=== PATIENT | female | born 1975 | race Caucasian/White ===

== ENCOUNTER 2019-12-04 13:24 | Emergency (ER) | payer MEDICAID ==
[~2019-12-04] VITALS: Ht 162.6 cm; Wt 73.0 kg
[2019-12-04] MEDS ORDERED: DIAMOX (13:29)
[2019-12-04] MEDS ORDERED: TYLENOL (13:31)
[2019-12-04] MEDS ORDERED: ZOFRAN (13:31)
[2019-12-04 14:47] LABS: PROTHROMBIN TIME 10.5 sec (9.6-11.0)
[2019-12-04 14:47] LABS: BASOPHILS % 0.6 % (0.0-2.0); EOSINOPHILS % 0.3 % (0.0-5.0); HEMATOCRIT. 41.6 % (36.0-48.0); HEMOGLOBIN. 13.8 g/dL (12.0-16.0); LYMPHOCYTES % 12.9 % (20.0-50.0); MEAN CORPUSCULAR HEMOGLOBIN 31.3 pg (28.0-32.0); MEAN CORPUSCULAR VOLUME 94.6 fL (81.0-99.0); MEAN PLATELET VOLUME 7.5 fl (7.4-10.4); MONOCYTES % 7.2 % (2.0-8.0); PLATELET 265 x1000/uL (130-400)
[2019-12-04 14:59] LABS: CHLORIDE 107 mEq/L (98-107)
[2019-12-04] MEDS ORDERED: DEXAMETHASONE 10 MG/ML VIAL IV ONE (15:15)
[2019-12-04] MEDS ORDERED: GADOBENATE DIMEGLUMINE 529 MG/ML 10ML IV ONE (15:39)
[2019-12-04] MEDS ORDERED: LEVETIRACETAM 1000MG/100ML 100 ML IV ONE (17:45)
[2019-12-04 17:58] LABS: CLARITY URINE TURBID (CLEAR); COLOR URINE YELLOW (YELLOW); KETONES URINE NEGATIVE (NEGATIVE); LEUKOCYTE ESTERASE URINE 1+ (NEGATIVE); NITRITE URINE NEGATIVE (NEGATIVE); OCCULT BLOOD URINE NEGATIVE (NEGATIVE); PROTEIN URINE NEGATIVE (NEGATIVE); SPECIFIC GRAVITY URINE 1.016 (1.005-1.030)
[2019-12-04] MEDS ORDERED: MORPHINE SULFATE 4 MG/ML CPJ (NOT FOR IM USE) IV STA (19:57)
[2019-12-04] MEDS ORDERED: ONDANSETRON HCL 4MG/2ML INJ IV STA (19:57)
[2019-12-05] MEDS ORDERED: DEXAMETHASONE 4MG TABLET PO SCH (06:00)
[2019-12-05] MEDS ORDERED: POTASSIUM CHLORIDE 20MEQ TABLET SR PO ONE (08:15)
[2019-12-05 11:12] VITALS: BP 143/94
== END 2019-12-05 11:15 | disposition short-term general hospital (02) ==
LOC: ER 14:03 → CANBEDREQ 12-05 20:07
DX: D49.6 Neoplasm of unspecified behavior of brain (principal); R42 Dizziness and giddiness; R53.1 Weakness; R11.0 Nausea; R60.9 Edema, unspecified
CPT/HCPCS: 36415; 70450; 70553; 71045; 80053; 81003; 82140; 83690; 83880; 84484; 85025; 85610; 93005; 96365; 96375; 99285; A9577; J1100; J1953; J2270; J2405; J8540